=== PATIENT | female | born 1965 | race Caucasian/White ===

== ENCOUNTER 2017-09-04 13:56 | Outpatient (CLI) | payer MEDICARE ==
--- NOTE | 2017-09-04 15:59 | MMO ---
BILATERAL SCREENING MAMMOGRAMS: Comparison is made to an outside mammogram from 2013. Interpreted with computer-aided detection. Breasts show predominant fatty replacement. There are small nodules in both breasts which are stable and benign. No evidence of a new mass or distortion. No suspicious calcification. Recommend 1-ye ar followup. IMPRESSION: BIRADS 2: Benign Finding(s) Routine annual screening mammography (for women over age 40) POS: [facility]
== END 2017-09-04 13:57 | disposition home or self-care (01) ==
LOC: MAMMO 13:56
PROVIDERS: ATTEND Nurse Practitioner
DX: Z12.31 Encounter for screening mammogram for malignant neoplasm of breast (principal); R92.8 Other abnormal and inconclusive findings on diagnostic imaging of breast
CPT/HCPCS: 77067; G0202

== ENCOUNTER 2018-07-24 15:46 | Outpatient (CLI) | payer MEDICARE | END 2018-07-24 15:47 | disposition home or self-care (01) | LOC: DTY/OP 15:46 | PROVIDERS: ATTEND Nurse Practitioner | DX: E66.01 Morbid (severe) obesity due to excess calories (principal); Z98.84 Bariatric surgery status | CPT/HCPCS: 97802 ==

== ENCOUNTER 2019-02-14 20:20 | Emergency (ER) | payer MEDICARE ==
[2019-02-14] MEDS ORDERED: Famotidine/PF 20 mg/2ml Vial ONE (20:49)
[2019-02-14] MEDS ORDERED: diphenhydrAMINE 50 MG/ML VIAL ONE (20:49)
[2019-02-14] MEDS ORDERED: methylPREDNISolone Sod Succ/PF 125 MG/2 ML VIAL ONE (20:49)
[2019-02-14] MEDS ORDERED: Lorazepam 2 MG/ML VIAL ONE (21:52)
--- NOTE | 2019-02-14 21:54 | RAD ---
FPortable chest: HISTORY: Chest pain COMPARISON: 08/22/2017 FINDINGS: Lung butterfield are clear. Heart and mediastinum appear unremarkable. Vascularity is normal. Visualized osseous structures unremarkable. IMPRESSION: No acute finding
[2019-02-14 22:02] LABS: #Basophils 0.1 thou/uL (0.0-0.2); #Eosinphils 0.1 thou/uL (0.0-0.7); #Lymphocytes 2.4 thou/uL (1.20-3.40); #Monocytes 0.6 thou/uL (0.11-0.59); #Neutrophils 2.6 thou/uL (1.40-6.50); %Basophils 1.4 % (0.0-1.0); %Lymphocytes 41.4 % (21.0-51.0); %Monocytes 10.3 % (0.0-10.0); %Neutrophils 44.9 % (42.0-75.0); Hemoglobin 15.1 g/dL (12.0-16.0); Mean Corpuscular HGB CONC 34.2 g/dL (32.0-36.0); Mean Corpuscular Hemoglobin 31.7 pg (27.0-31.0); Mean Corpuscular Volume 92.6 fL (78.0-98.0); Platelet Count 336 thou/uL (130-400); RBC Distribution Width 11.7 % (11.5-14.5); Red Blood Cell (RBC) Count 4.78 mill/uL (4.20-5.40); White Blood Cell (WBC) Count 5.8 thou/uL (4.8-10.8)
[2019-02-14 22:21] LABS: ALT (SGPT) 19 U/L (8-55); AST (SGOT) 24 U/L (5-34); Albumin 4.1 g/dL (3.5-5.0); Alkaline Phosphatase 117 U/L (40-150); Anion Gap 13 mmol/L (10-20); BUN (Urea Nitrogen) 9 mg/dL (9.8-20.1); Bilirubin, Total 0.4 mg/dL (0.2-1.2); Calc. Creatinine Clearance 0 mL/min (70-130); Calcium 9.7 mg/dL (7.8-10.44); Carbon Dioxide 25 mmol/L (22-29); Chloride 108 mmol/L (98-107); Estimated GFR-MDRD 66; Globulin 2.7 g/dL (2.4-3.5); Glucose 109 mg/dL (70-105); Potassium 4.5 mmol/L (3.5-5.1); Protein, Total 6.8 g/dL (6.0-8.3); Sodium 141 mmol/L (136-145)
== END 2019-02-14 23:36 | disposition home or self-care (01) ==
LOC: ERS 20:20
DX: T78.1XXA Other adverse food reactions, not elsewhere classified, initial encounter (principal); R07.9 Chest pain, unspecified; R06.02 Shortness of breath; I10 Essential (primary) hypertension; F31.9 Bipolar disorder, unspecified; Z79.899 Other long term (current) drug therapy
CPT/HCPCS: 36415; 71045; 80053; 84484; 85025; 93005; 96374; 96375; J1200; J2060; J2930; S0028

== ENCOUNTER 2019-06-22 07:47 | Outpatient (CLI) | payer MEDICARE ==
--- NOTE | 2019-06-22 11:46 | NM ---
Radionucleotide parathyroid scan with SPECT imaging HISTORY: Hyperparathyroidism. FINDINGS: Early images show physiologic uptake of radiotracer within the thyroid gland, salivary glan ds, and heart. The delayed images show near complete washout of radiotracer from the thyroid gland and the thyroid bed. No persistent areas of increased radiotracer uptake are at either thyroid bed or within the upper mediastinum. IMPRESSION: No scintigraphic evidence of parathyroid adenoma.
== END 2019-06-22 07:48 | disposition home or self-care (01) ==
LOC: NM 07:47
PROVIDERS: ATTEND Otolaryngology Plastic Surgery within the Head & Neck
DX: E34.8 Other specified endocrine disorders (principal)
CPT/HCPCS: 78072; A9500

== ENCOUNTER 2019-07-08 10:36 | Day surgery (SDC) | payer MEDICARE ==
[2019-07-07 15:30] VITALS: BMI 35.1
[2019-07-08] MEDS ORDERED: Lidocaine 1% w/Epinephrine 1:100K 20 ML VIAL ONE (12:43)
[2019-07-08] MEDS ORDERED: Bacitracin Zinc Ointment 30 gm TUBE ONE (12:43)
[2019-07-08] MEDS ORDERED: Fentanyl 250 MCG/5 ML VIAL ONE (12:54)
[2019-07-08] MEDS ORDERED: Midazolam HCl 2 mg/2 ml Vial ONE (12:54)
[2019-07-08] MEDS ORDERED: Fentanyl 100 MCG/2 ML VIAL ONE (14:51)
[2019-07-08] MEDS ORDERED: Hydrocodone-Acetamin 15 ML UDCUP ONE (16:13)
--- NOTE | 2019-07-09 12:23 | OP ---
DATE OF PROCEDURE: 07/08/2019 PREOPERATIVE DIAGNOSIS: Hyperparathyroidism. POSTOPERATIVE DIAGNOSIS: Hyperparathyroidism. PROCEDURES PERFORMED: 1. Bilateral exploration of parathyroid glands and parathyroidectomy. 2. Intraoperative laryngeal nerve monitor. ESTIMATED BLOOD LOSS: Less than 10 mL. COMPLICATIONS: None. ANESTHESIA: GETA. DESCRIPTION OF PROCEDURE: The patient was taken to operating room, placed supine on the table. General endotracheal anesthesia was obtained by the anesthesia staff. Tube was secured in the midline of the upper lip, and a shoulder roll was placed and the patient was placed in suspension. The laryngeal electrodes were noted to be between the true vocal cords bilaterally by indirect visualization. Following this, the patient was prepped and draped in standard surgical fashion. A 4-cm incision was made overlying the thyroid gland and the anterior horizontal skin crease. Following this, the incision was carried through skin and subcutaneous tissues and subplatysmal flaps were elevated superiorly and inferiorly. The strap muscles were then in the midline. The thyroid gland was identified, and dissection was carried medially adjacent to the thyroid gland. The bilateral parathyroid glands were explored, and all 4 glands were identified, none were showing large adenomatous change. However, all of the gland appeared slightly enlarged. The inferior glands bilaterally seem twice the size of the inferior glands bilaterally. Therefore, one on each side was removed and sent for pathological analysis and it confirmed to be parathyroid tissue. Following this, wound was irrigated. The strap muscles were reapproximated with Monocryl stitch. Small drain was placed. The platysma layer and subcuticular layer were closed with Monocryl stitch as well. Dermabond was placed on the skin, and the patient tolerated the procedure well. Job ID: [id number]
== END 2019-07-08 17:03 | disposition home or self-care (01) ==
LOC: SDC 10:36
PROVIDERS: ATTEND Otolaryngology Plastic Surgery within the Head & Neck
PROC: 0GTR0ZZ Resection of Parathyroid Gland, Open Approach (ICD-10-PCS; principal; 2019-07-08)
DX: E21.3 Hyperparathyroidism, unspecified (principal); I10 Essential (primary) hypertension; E11.9 Type 2 diabetes mellitus without complications; E78.5 Hyperlipidemia, unspecified; Z88.1 Allergy status to other antibiotic agents; Z88.5 Allergy status to narcotic agent; Z88.2 Allergy status to sulfonamides; Z88.8 Allergy status to other drugs, medicaments and biological substances; Z91.048 Other nonmedicinal substance allergy status
CPT/HCPCS: 85014; 88305; 88331; 93005; 93010; J0131; J2001; J2250; J3010